=== PATIENT | male | born 1985 | race Caucasian/White ===

== ENCOUNTER 2017-05-29 06:46 | Emergency (ER) | payer SELFPAY ==
[~2017-05-29] VITALS: Ht 188 cm; Wt 91.2 kg
[~2017-05-29 06:46] MED LIST: ANUSOL-HC25 MG RE; AUGMENTIN875TAB PO; BACTRIM DS1 TAB OR; BACTROBAN2 % EX; CLINDAMYCIN300 M1 PO; CORTISPORIN OTI10 M1 OT; DOXYCYC MONO100 MG OR; IRON325 MG OR; LORTAB 5-325 MG1 TAB PO; MOTRIN800 MG PO; NKA; NO HOME MEDS; NO MEDS; PERCOCET 5/325M1 TAB OR; ULTRAM50 M1 PO
[2017-05-29 08:01] LABS: HEMATOCRIT 46.9 % (39.0-50.0); HEMOGLOBIN 15.7 g/dl (14.0-18.0); IMMATURE GRANULOCYTES 0.3 % (0.0-1.0); MEAN CORPUSCULAR HGB 31.5 pG CALC (26.0-32.0); MEAN CORPUSCULAR HGB CONC 33.5 g/L CALC (32.0-36.0); NEUT# 6.55 thou/uL (1.82-7.42); RED BLOOD COUNT 4.99 mill/uL (4.70-6.10); RED CELL DISTRI WIDTH 13.7 % (11.5-15.5)
[2017-05-29 08:19] LABS: ALBUMIN 4.5 g/dL (3.2-5.0); ALKALINE PHOSPHATASE 90 u/l (38-126); ANION GAP 16 (6-22 (CALC)); BUN 8 mg/dL (9-20); BUN/CREATININE RATIO 12 (12-20 (CALC)); CALCIUM 9.2 mg/dL (8.4-10.2); CARBON DIOXIDE 26 mmol/l (22-30); CHLORIDE 105 mmol/l (95-108); CREATININE 0.7 mg/dL (0.7-1.3); GFR > 60 ML/MIN (>=60 (CALC)); GFR FOR AFR.AMER. > 60 ML/MIN (>=60 (CALC)); GLUCOSE 95 mg/dL (75-110); POTASSIUM 4.6 mmol/l (3.5-5.1); SGOT/AST 35 u/l (17-59); SGPT/ALT 56 u/l (21-72); SODIUM 142 mmol/l (137-146); TOTAL PROTEIN 7.9 g/dL (6.3-8.2)
[2017-05-29] MEDS ORDERED: TRAMADOL HYDROC50 MG PO (10:03)
[2017-05-29] MEDS ORDERED: MOTRIN800 MG PO (10:03)
[2017-05-29 10:21] VITALS: BP 136/88
== END 2017-05-29 10:22 | disposition home or self-care (01) | DRG 563 ==
LOC: ED 06:46
PROVIDERS: Emergency Medicine
DX: S93.601A Unspecified sprain of right foot, initial encounter (principal); F17.210 Nicotine dependence, cigarettes, uncomplicated; S29.9XXA Unspecified injury of thorax, initial encounter; S39.91XA Unspecified injury of abdomen, initial encounter; W10.9XXA Fall (on) (from) unspecified stairs and steps, initial encounter
CPT/HCPCS: Q9967

== ENCOUNTER 2017-06-27 18:11 | Emergency (ER) | payer SELFPAY ==
[~2017-06-27] VITALS: Ht 188 cm; Wt 91.0 kg
[~2017-06-27 18:11] MED LIST changes: +TRAMADOL HYDROC50 MG PO
[2017-06-27] MEDS ORDERED: IBUPROFEN600 MG PO (20:27)
[2017-06-27 20:40] VITALS: BP 146/92
== END 2017-06-27 20:40 | disposition home or self-care (01) | DRG 563 ==
LOC: ED 18:11
DX: M23.91 Unspecified internal derangement of right knee (principal); W17.89XA Other fall from one level to another, initial encounter; Y93.89 Activity, other specified; Y92.89 Other specified places as the place of occurrence of the external cause

== ENCOUNTER 2020-08-05 22:23 | Emergency (ER) | payer SELFPAY ==
[~2020-08-05] VITALS: Ht 188 cm; Wt 90.0 kg
[~2020-08-05 22:23] MED LIST changes: +IBUPROFEN600 MG PO
[2020-08-05 23:12] LABS: HEMATOCRIT 47.5 % (39.0-50.0); IMMATURE GRANULOCYTES 0.2 % (0.0-5.0); MEAN CORPUSCULAR HGB 30.7 pG CALC (26.0-32.0); MEAN CORPUSCULAR HGB CONC 33.7 g/dL CAL (32.0-36.0); NEUT# 9.25 thou/uL (1.82-7.42); RED BLOOD COUNT 5.22 mill/uL (4.70-6.10); RED CELL DISTRI WIDTH 12.7 % (11.5-15.5)
[2020-08-05 23:34] LABS: ALBUMIN 5.2 g/dL (3.2-5.0); ALKALINE PHOSPHATASE 121 u/l (38-126); ANION GAP 17 (6-22 (CALC)); BUN 18 mg/dL (9-20); BUN/CREATININE RATIO 15 (12-20 (CALC)); CARBON DIOXIDE 22 mmol/l (22-30); CHLORIDE 104 mmol/l (95-108); CREATININE 1.2 mg/dL (0.7-1.3); ETHYL ALCOHOL 0 mg/dl (0-30); GFR > 60 ML/MIN (>=60 (CALC)); GFR FOR AFR.AMER. > 60 ML/MIN (>=60 (CALC)); SGOT/AST 41 u/l (17-59); SODIUM 138 mmol/l (137-146)
[2020-08-05 23:36] LABS: BILIRUBIN, TOTAL 1.8 mg/dL (0.0-1.4)
[2020-08-06 00:42] LABS: URINE BILIRUBIN - DIPSTICK NEGATIVE (NEGATIVE); URINE BLOOD DIPSTICK NEGATIVE (NEGATIVE); URINE COLOR YELLOW; URINE GLUCOSE - DIPSTICK NEGATIVE (NEGATIVE); URINE KETONE 15 mg/dL (NEGATIVE); URINE LEUK ESTERASE NEGATIVE (NEGATIVE); URINE NITRITE - DIPSTICK NEGATIVE (Negative); URINE PROTEIN - DIPSTICK TRACE mg/dL (NEG-TRACE); URINE SPECIFIC GRAVITY >=1.030
[2020-08-06 01:00] VITALS: BP 156/95
== END 2020-08-06 01:22 | disposition home or self-care (01) | DRG 897 ==
LOC: ED 22:23
PROVIDERS: Family Medicine
DX: F19.10 Other psychoactive substance abuse, uncomplicated (principal); F17.200 Nicotine dependence, unspecified, uncomplicated